=== PATIENT | female | born 1950 | race Caucasian/White ===

== ENCOUNTER → 2020-05-24 | Outpatient (CLI) | payer MEDICARE, OTHER ==
[~2020-05-24] MED LIST: ALBUTEROL SULFATE 0.083% NEB 2.5 MG/3 ML AMPUL NEB ONE
--- NOTE | 2020-05-27 14:28 | Pulmonary Function Test ---
Pulmonary Function Test Date of Procedure:: 05/24/20 INDICATION:: Dyspnea Referring Provider: Maria Elena COHEN Design Engineer Agricultural Equipment: Naya Gomez [employer], [employer]ODU[employer] SUPERVISOR - Report Spirometry: Spirometry: pre-FVC: 2.23 L 75% post-FVC: 2.16 L 72% pre-FEV:1 1.53 L 65% post-FEV1: 1.53 L 65% pre-FEV1/FVC %: 69 post-FEV1/FVC%: 71 predicted: 82 [id number]%: 0.84 L 34% [id number]%: 0.97 L 40% Lung Volume: Total lung capacity: 4.41 L 88% Vital capacity: 2.23 L 75% Inspiratory capacity: 1.88 L FRC N2: 2.54 L 120% ERV: 0.16 L RV: 2.18 L 109% RV/TLC %:: 49 predicted 40 Diffusion Capactity: DLCO: 20.0 76% DLCO/VA: 4.53 122% Impression: Mild obstructive ventilatory defect. Mild response to bronchodilator therapy. No restrictive ventilatory defect. No hyperinflation. No air trapping. Mild decrease in diffusion capacity.
== END ==
LOC: RT 11:56
PROVIDERS: ATTEND Nurse Practitioner
DX: R06.00 Dyspnea, unspecified (principal); I10 Essential (primary) hypertension; G47.30 Sleep apnea, unspecified
CPT/HCPCS: 94729; 94727; 94060; A9270; J7613